=== PATIENT | female | born 1985 | race African-American/Black ===

== ENCOUNTER 2023-08-02 01:57 | Emergency (ER) | payer OTHER, MEDICAID ==
[~2023-08-02] VITALS: Ht 167.6 cm; Wt 82.0 kg
[2023-08-02 01:59] VITALS: BP 148/86; PULSE 82; RESP 16; TEMP 98.4; O2SAT 99
[2023-08-02] MEDS ORDERED: ACETAMINOPHEN 325MG TABLET PO ONE (02:15)
[2023-08-02] MEDS ORDERED: ACET-2708 MT (03:40)
== END 2023-08-02 05:00 | disposition home or self-care (01) ==
LOC: ER 02:21
DX: S43.492A Other sprain of left shoulder joint, initial encounter (principal); X58.XXXA Exposure to other specified factors, initial encounter; Y93.89 Activity, other specified; Y92.89 Other specified places as the place of occurrence of the external cause; Y99.8 Other external cause status
CPT/HCPCS: 73030; 99284

== ENCOUNTER 2024-12-04 02:25 | Emergency (ER) | payer MEDICAID, OTHER ==
[~2024-12-04 02:25] MED LIST: ACET-2708 MT
[2024-12-04] MEDS: KETOROLAC 30MG/ML VIAL IM ONE (06:30)
[2024-12-04] MEDS: DIPHENHYDRAMINE 25MG CAPSULE PO ONE (06:45)
[2024-12-04 06:52] LABS: BASOPHILS % 0.6 % (0.0-2.0); EOSINOPHILS % 6.4 % (0.0-5.0); HEMATOCRIT. 37.8 % (36.0-48.0); HEMOGLOBIN. 12.3 g/dL (12.0-16.0); LYMPHOCYTES % 21.8 % (20.0-50.0); MEAN PLATELET VOLUME 7.9 fl (7.4-10.4); MONOCYTES % 7.8 % (2.0-8.0); NEUTROPHILS % 63.4 % (40.0-76.0); PLATELET 391 x1000/uL (130-400); RED BLOOD CELL COUNT 4.05 mill/uL (4.2-5.4); RED CELL DISTRIBUTION WIDTH 13.8 % (11.6-14.6)
[2024-12-04 06:53] LABS: HCG SCREEN NEGATIVE
[2024-12-04 06:57] LABS: CREATININE 0.6 mg/dL (0.6-1.0); UREA NITROGEN BLOOD 15 mg/dL (9-23)
[2024-12-04 06:58] LABS: ASPARTATE AMINOTRANSFERASE 14 IU/L (<34)
[2024-12-04 06:59] LABS: BILIRUBIN TOTAL 0.6 mg/dL (0.1-1.0); PROTEIN TOTAL 6.9 g/dL (6.0-8.3)
[2024-12-04 07:11] VITALS: BP 120/74; PULSE 92; RESP 14; O2SAT 95
== END 2024-12-04 07:15 | disposition home or self-care (01) ==
LOC: ER 02:25
DX: D22.9 Melanocytic nevi, unspecified (principal)
CPT/HCPCS: 80053; 84703; 85025; 36415; 96372; 99283; Q0163; J1885; Z7610